=== PATIENT | female | born 1940 | race Caucasian/White ===

== ENCOUNTER 2021-09-02 16:24 | Emergency (ER) | payer MEDICARE ==
[2021-09-02 16:50] VITALS: BP 130/60
[2021-09-02] MEDS ORDERED: TETANUS/DIPHTHERIA/PERTUSSIS 0.5 ML SYRINGE IM ONE (18:36)
--- NOTE | 2021-09-02 18:38 | ED Physician Documentation ---
History of Present Illness - Stated complaint Stated Complaint: L FINGER INJ - Chief complaint Chief Complaint: Laceration - Additonal information Additional information: 81-year-old female presents emergency department for evaluation of a left small finger laceration sustained when frozen beef patties at home with a knife. Uncertain of last tetanus. [id number]. 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 Unable to extend or flex at baseline due to history of contracture. Bleeding controlled with pressure.) Results - Vitals Vitals: Vital Signs - 24 hr 09/02/21 16:47 Temperature 36.6 C Heart Rate 64 Respiratory 16 Rate Blood Pressure 130/60 O2 Saturation 97 Oxygen O2 Source Room air Procedures - Laceration (location) Left small finger Length in cm: 0.5 Wound type: Linear Wound preparation: Chlorhexadine, Irrigated copiously NS Skin layer closure: Dermabond Other: Patient tolerated well, Tetanus booster given PD MEDICAL DECISION MAKING - ED course Complexity details: d/w patient ED course: Superficial laceration to the distal left small finger sustained when cutting/ hamburger patties. Wound was thoroughly irrigated. Easily closed with Dermabond. Routine wound care and emergent return precautions were discussed tetanus was updated today Departure - Departure Disposition: 01 Home, Self Care Clinical Impression: Finger laceration Qualifiers: Encounter type: initial encounter Finger: little finger Foreign body presence: without foreign body Laterality: left Instructions: ED Laceration Ext Skin Glue Comments: Kelly I believe your finger will heal well. You do have a superficial laceration to the distal tip that was closed with Dermabond. No special care is required for this. The glue will simply wear away over the next 3 to 5 days. In that short time I encourage you to keep your hand clean and dry. Do not submerge in dirty water, dishwater or bath water. Return to the emergency department if you have any concerns of infection.
== END 2021-09-02 18:50 | disposition home or self-care (01) ==
LOC: ED 16:24
DX: S61.217A Laceration without foreign body of left little finger without damage to nail, initial encounter (principal); W26.0XXA Contact with knife, initial encounter; Y92.009 Unspecified place in unspecified non-institutional (private) residence as the place of occurrence of the external cause
CPT/HCPCS: 12001; 90471; 99283